=== PATIENT | male | born 1990 | race American Indian/Alaskan Native ===

== ENCOUNTER 2019-05-28 08:20 | Emergency (ER) | payer OTHER ==
[2019-05-28] MEDS ORDERED: ALBUTEROL 2.5 MG/3 ML NEBU IH ONE (08:34)
[2019-05-28] MEDS ORDERED: methylPREDNISolone Sod Succinate 125 MG/2 ML INJ IV ONE (08:34)
[2019-05-28] MEDS ORDERED: MAGNESIUM SULFATE 2 GM/50 ML BAG IV ONE (08:34)
[2019-05-28] MEDS ORDERED: IPRATROPIUM 0.02% NEBU 2.5 ML IH ONE (08:34)
[2019-05-28] MEDS ORDERED: IPRATROPIUM/ALBUTEROL SULFATE 3 ML AMPUL.NEB IH ONE (08:35)
--- NOTE | 2019-05-28 08:52 | Emergency Department Report ---
ED Shortness of Breath HPI - General Chief Complaint: Adult Asthma Stated Complaint: CHARLEY Time Seen by Provider: 05/28/19 08:30 Source: patient Mode of arrival: Ambulatory Limitations: No Limitations - History of Present Illness Initial Comments: 29-year-old male, history of asthma, presents to ED with complaint of shortness of breath. Patient states earlier this morning at around 5 AM, he woke with wheezing and uses albuterol inhaler. Patient reports he went back to sleep and when he woke up his wheezing was worse. Patient currently unable to speak in complete sentences. He denies cough or fever. MD Complaint: "asthma attack" -: This morning Severity: moderate Consistency: constant Improves With: bronchodilators Worsens With: nothing Known History Of: asthma Associated Symptoms: denies other symptoms Treatments Prior to Arrival: bronchodilator - Related Data Home Oxygen Therapy: No Previous Rx's Medication Instructions Recorded Last Taken Type Albuterol Sulfate [Proventil Hfa] 2 puff IH Q4HR PRN #1 [email or web address] 05/28/19 Unknown Rx predniSONE [Deltasone] 50 mg PO QDAY #5 tab 05/28/19 Unknown Rx Allergies Allergy/AdvReac Type Severity Reaction Status Date / Time No Known Allergies Allergy Unverified 05/28/19 08:25 ED Review of Systems ROS: Stated complaint: CHARLEY Other details as noted in HPI Comment: All other systems reviewed and negative Constitutional: denies: chills, fever Respiratory: shortness of breath, wheezing. denies: cough Cardiovascular: denies: chest pain ED Past Medical Hx - Past Medical History Previous Medical History?: Yes Hx Asthma: Yes - Surgical History Past Surgical History?: No - Medications Home Medications: Home Medications Medication Instructions Recorded Confirmed Last Taken Type Albuterol Sulfate [Proventil Hfa] 2 puff IH Q4HR PRN #1 [email or web address] 05/28/19 Unknown Rx predniSONE [Deltasone] 50 mg PO QDAY #5 tab 05/28/19 Unknown Rx ED Physical Exam - General Limitations: No Limitations General appearance: alert - Head Head exam: Present: atraumatic, normocephalic - Eye Eye exam: Present: normal appearance - ENT ENT exam: Present: mucous membranes moist - Neck Neck exam: Present: normal inspection - Respiratory Respiratory exam: Present: respiratory distress, wheezes (scattered), decreased breath sounds - Cardiovascular Cardiovascular Exam: Present: normal rhythm, tachycardia - GI/Abdominal GI/Abdominal exam: Absent: distended - Extremities Exam Extremities exam: Present: normal inspection - Neurological Exam Neurological exam: Present: alert, oriented X3 - Psychiatric Psychiatric exam: Present: normal affect, normal mood - Skin Skin exam: Present: warm, dry, intact, normal color ED Course Vital Signs 05/28/19 05/28/19 05/28/19 08:33 08:46 08:52 Temperature 98.0 F Pulse Rate 114 H Respiratory 20 Rate Blood Pressure 142/81 Blood Pressure [Left] O2 Sat by Pulse 100 90 99 Oximetry 05/28/19 05/28/19 10:37 10:54 Temperature 97.6 F Pulse Rate 91 H 90 Respiratory 19 18 Rate Blood Pressure Blood Pressure 120/68 124/70 [Left] O2 Sat by Pulse 92 95 Oximetry - Reevaluation(s) Reevaluation #1: 05/28/19 10:25 Pt feeling much better at this time. Wheezing resolved. Lungs clear. Feels ok for d/c home. ED Medical Decision Making - Medical Decision Making 29-year-old male with acute asthma exacerbation. Patient given Solu-Medrol, magnesium, albuterol nebs here in ED. Initial O2 sat of 89% on room air. Following medication administration, wheezing and tachypnea improved. Patient feeling much better. O2 sats currently 95% on room air. Patient feels comfortable for discharge home at this time. Prescriptions given. Outpatient follow-up advised. Return precautions given. - Differential Diagnosis asthma exacerbation Critical Care Time: Yes Critical care time in (mins) excluding proc time.: 35 Critical care attestation.: If time is entered above; I have spent that time in minutes in the direct care of this critically ill patient, excluding procedure time. Critical Care Time: 35 min ED Disposition Clinical Impression: Acute asthma exacerbation Disposition: - TO HOME OR SELFCARE Is pt being admited?: No Condition: Stable Instructions: Asthma (ED) Prescriptions: predniSONE [Deltasone] 50 mg PO QDAY #5 tab Albuterol Sulfate [Proventil Hfa] 2 puff IH Q4HR PRN #1 hfa.[email or web address] PRN Reason: Wheezing Referrals: GENNY PEREZ MD [Primary Care Provider] - 3-5 Days [facility] [Provider Group] - 3-5 Days JULIANNE MYERS MD [Staff Physician] - 3-5 Days SAVAGE OQUENDO MD [Staff Physician] - 3-5 Days Time of Disposition: 10:27
[2019-05-28 10:55] VITALS: BP 124/70
== END 2019-05-28 10:54 | disposition home or self-care (01) ==
LOC: ED 08:20
DX: J45.901 Unspecified asthma with (acute) exacerbation (principal)
CPT/HCPCS: 96365; 96375; 99283; J2930; J3475